=== PATIENT | female | born 1970 | race Caucasian/White ===

== ENCOUNTER → 2021-07-27 11:12 | Outpatient (POV) | payer SELFPAY | PROVIDERS: Visit Provider Dermatology | DX: Z00.00 Encounter for general adult medical examination without abnormal findings (principal) ==

== ENCOUNTER → 2021-08-17 15:46 | Outpatient (POV) | payer SELFPAY | PROVIDERS: Visit Provider Dermatology | DX: Z00.00 Encounter for general adult medical examination without abnormal findings (principal) ==

== ENCOUNTER 2024-12-30 13:48 | Outpatient (CLI) | payer BC, SELFPAY ==
--- NOTE | 2024-12-30 13:56 | XR_ITS ---
FINAL REPORT CLINICAL HISTORY: Strain/sprain MCL COMPARISON: None FINDINGS: LEFT KNEE Three views demonstrate no acute fracture or dislocation. The joint spaces appear normal. No acute soft tissue abnormality is seen. IMPRESSION: No acute bony abnormality. Reviewed, Interpreted and Dictated by Leif Hastings MD Transcribed by Anna Sullivan Authenticated and [facility]
== END 2024-12-30 23:59 | disposition home or self-care (01) ==
LOC: RAD 13:53
PROVIDERS: PCP Physician Assistant; Visit Provider Physician Assistant
DX: S83.412A Sprain of medial collateral ligament of left knee, initial encounter (principal)
CPT/HCPCS: 73562